=== PATIENT | female | born 1955 | race Caucasian/White ===

== ENCOUNTER 2017-04-15 10:35 | Observation (INO) ==
[2017-04-15] MEDS ORDERED: ASPIRIN 325 MG TABLET PO STA (11:22)
[2017-04-15] MEDS ORDERED: LORazepam 2 MG/1 ML VIAL IV STA (11:23)
[2017-04-15] MEDS ORDERED: ASPIRIN 325 MG TABLET ONE (11:26)
[2017-04-15] MEDS ORDERED: LORazepam 2 MG/1 ML VIAL ONE (11:27)
[2017-04-15 11:30] LABS: Basophils # 0.1 10*3/uL (0.0-0.2); Basophils % 0.9 % (0.0-0.8); Eosinophils # 0.2 10*3/uL (0.0-0.87); Eosinophils % 3.4 % (0.00-10.9); Hemoglobin 14.7 GM/DL (12.0-16.0); Immature Granulocytes % 0.4 %; Immature Granulocytes Absolute 0.02 #; Lymphocytes # 1.9 10*3/uL (1.4-4.0); Lymphocytes % 35.4 % (21.3-54.2); Mean Corpuscular HGB Conc 34.2 GM/DL (32-36); Mean Corpuscular Hemoglobin 30 PG (27-34); Mean Corpuscular Volume 87.8 FL (87-102); Mean Platelet Volume 10.8 FL (9.6-12.0); Monocytes # 0.4 10*3/uL (0.11-0.8); Monocytes % 7.1 % (1.7-12.7); Neutrophils # 2.8 10*3/uL (1.4-7.4); Neutrophils % 52.8 % (38.7-73.9); Platelet Count 199 T/CUMM (130-400); Red Cell Distribution Width 12.4 % (9.3-17.3); White Blood Count 5.4 T/CUMM (4-12)
[2017-04-15 11:44] LABS: Bilirubin,Total 0.5 MG/DL (0.2-1.0); Calcium 9.7 MG/DL (8.5-10.1); Osmolality,Calculated 278.3 MOS/KG (273-304); Potassium 4.2 MMOL/L (3.5-5.1)
[2017-04-15] MEDS ORDERED: ACETAMINOPHEN 325 MG TABLET PO PRN (13:21)
[2017-04-15] MEDS ORDERED: diphenhydrAMINE CAP 25 MG CAPSULE PO PRN (13:21)
[2017-04-15] MEDS ORDERED: guaiFENesin/DM ER 600-30 MG TABLET PO PRN (13:21)
[2017-04-15] MEDS ORDERED: PROMETHAZINE 25 MG/1 ML VIAL IM PRN (13:21)
[2017-04-15] MEDS ORDERED: DOCUSATE SODIUM 100 MG CAPSULE PO PRN (13:21)
[2017-04-15] MEDS ORDERED: LORazepam 1 MG TABLET PO PRN (13:21)
[2017-04-15] MEDS ORDERED: ONDANSETRON 4 MG/2 ML VIAL IV PRN (13:21)
[2017-04-15] MEDS ORDERED: ZALEPLON 5 MG CAPSULE PO PRN (13:21)
[2017-04-15] MEDS ORDERED: MORPHINE 2 MG/1 ML SYRINGE IV PRN (13:21)
[2017-04-15] MEDS ORDERED: SODIUM CHLORIDE 0.9% 1,000 ML IV SCH (13:30)
[2017-04-15 14:19] LABS: Risk Ratio 3.6; Thyroid Stimulating Hormone 3.52 uIU/ml (0.358-3.74); VLDL CHOLESTEROL 24.6 MG/DL
[2017-04-15] MEDS ORDERED: ALUMINUM/MAGNES/SIMETH MAX STR 30 ML UDCUP PO PRN (15:14)
[2017-04-15] MEDS: PANTOPRAZOLE 40 MG TABLET PO SCH (15:24)
[2017-04-15] MEDS: METOPROLOL TARTRATE 25 MG TABLET PO SCH ×2 (15:25→21:18)
[2017-04-15] MEDS: ENOXAPARIN 40 MG/0.4 ML SYRINGE SUBCUT SCH (15:25)
[2017-04-15 15:41] LABS: Apearance,Urine CLEAR (Clear); Bilirubin,Urine Negative (Negative); Blood, Urine Negative (Negative); Glucose,Urine (UA) Negative (Negative); Ketones,Urine Negative (Negative); Mucus,Urine Occasional /LPF (Occasional); Nitrite,Urine Negative (Negative); Protein,Urine Negative; Squamous Epithelial Cell,Urine Occasional /HPF (0-10); Urine Color Yellow (Yellow); Urine Specific Gravity 1.005 (1.001-1.035); Urine Urobilinogen < 2.0 EU/DL (0.2-1.0); WBC,Urine <1 /HPF (0-6)
[2017-04-15] MEDS: NITROGLYCERIN 0.1 MG/HR PATCH TRANSDERM SCH (17:05)
[2017-04-15] MEDS: SIMVASTATIN 10 MG TABLET PO SCH (21:18)
[2017-04-16 05:15] LABS: Basophils % 0.9 % (0.0-0.8); Eosinophils # 0.2 10*3/uL (0.0-0.87); Eosinophils % 4.9 % (0.00-10.9); Hematocrit 42.9 VOL% (35.7-47.0); Immature Granulocytes % 0.2 %; Immature Granulocytes Absolute 0.01 #; Lymphocytes # 1.8 10*3/uL (1.4-4.0); Lymphocytes % 38.5 % (21.3-54.2); Mean Corpuscular HGB Conc 32.6 GM/DL (32-36); Mean Corpuscular Hemoglobin 29 PG (27-34); Mean Corpuscular Volume 89.6 FL (87-102); Mean Platelet Volume 10.9 FL (9.6-12.0); Monocytes # 0.4 10*3/uL (0.11-0.8); Monocytes % 7.9 % (1.7-12.7); Neutrophils # 2.2 10*3/uL (1.4-7.4); Neutrophils % 47.6 % (38.7-73.9); Platelet Count 179 T/CUMM (130-400); Red Blood Count 4.79 MC/CUMM (3.8-5.5); Red Cell Distribution Width 12.4 % (9.3-17.3); White Blood Count 4.7 T/CUMM (4-12)
[2017-04-16 05:45] LABS: Calcium 8.8 MG/DL (8.5-10.1); Magnesium 2.3 MG/DL (1.8-2.4); Osmolality,Calculated 280.1 MOS/KG (273-304); Potassium 4.2 MMOL/L (3.5-5.1)
[2017-04-16 10:19] LABS: Troponin I Only < 0.015 NG/ML (0.00-0.045)
[2017-04-16] MEDS ORDERED: MAGNESIUM SULF RIDER 2 GM in PREMIX 1 EACH IV PRN (11:43)
[2017-04-16] MEDS ORDERED: POTASSIUM CHLORIDE RIDER 10 MEQ in PREMIX 1 EACH IV PRN (11:43)
[2017-04-16] MEDS ORDERED: diphenhydrAMINE CAP 25 MG CAPSULE PO ONE (11:43)
[2017-04-16] MEDS ORDERED: DIAZEPAM 5 MG TABLET PO ONE (11:43)
[2017-04-16] MEDS: PANTOPRAZOLE 40 MG TABLET PO SCH (11:53)
[2017-04-16] MEDS: SODIUM CHLORIDE 0.45% 1,000 ML IV SCH ×2 (11:53→18:00)
[2017-04-16] MEDS: METOPROLOL TARTRATE 25 MG TABLET PO SCH ×3 (11:53→20:48)
[2017-04-16] MEDS: ASPIRIN EC 81 MG TABLET PO SCH (11:53)
[2017-04-16] MEDS: NITROGLYCERIN 0.1 MG/HR PATCH TRANSDERM SCH (12:07)
[2017-04-16] MEDS ORDERED: LIDOCAINE 1% 20 ML VIAL ONE (12:11)
[2017-04-16] MEDS ORDERED: HEPARIN/NACL 0.9% 2 UNITS/ML 1,000 ML IV ONE (12:11)
[2017-04-16] MEDS ORDERED: MIDAZOLAM 2 MG/2 ML VIAL ONE ×2 (12:26→12:42)
[2017-04-16] MEDS ORDERED: fentaNYL 100 MCG/2 ML VIAL ONE (12:26)
[2017-04-16 12:31] LABS: PT Patient Result 10.2 SECS; Partial Thromboplastin Time 24.7 SECS (0-40)
[2017-04-16 12:56] LABS: Troponin I Only < 0.015 NG/ML (0.00-0.045)
[2017-04-16] MEDS: ENOXAPARIN 40 MG/0.4 ML SYRINGE SUBCUT SCH (15:40)
[2017-04-16] MEDS: SIMVASTATIN 10 MG TABLET PO SCH (20:48)
[2017-04-17] MEDS: SODIUM CHLORIDE 0.45% 1,000 ML IV SCH ×3 (03:03→18:33)
[2017-04-17 03:42] LABS: Basophils % 0.6 % (0.0-0.8); Eosinophils # 0.3 10*3/uL (0.0-0.87); Eosinophils % 4.4 % (0.00-10.9); Hematocrit 38.6 VOL% (35.7-47.0); Hemoglobin 12.6 GM/DL (12.0-16.0); Immature Granulocytes % 0.2 %; Immature Granulocytes Absolute 0.01 #; Lymphocytes # 1.8 10*3/uL (1.4-4.0); Lymphocytes % 28.2 % (21.3-54.2); Mean Corpuscular HGB Conc 32.6 GM/DL (32-36); Mean Corpuscular Hemoglobin 30 PG (27-34); Mean Platelet Volume 11.1 FL (9.6-12.0); Monocytes # 0.4 10*3/uL (0.11-0.8); Monocytes % 6.3 % (1.7-12.7); Neutrophils # 3.8 10*3/uL (1.4-7.4); Neutrophils % 60.3 % (38.7-73.9); Platelet Count 169 T/CUMM (130-400); Red Blood Count 4.24 MC/CUMM (3.8-5.5); Red Cell Distribution Width 12.4 % (9.3-17.3); White Blood Count 6.3 T/CUMM (4-12)
[2017-04-17 04:01] LABS: Calcium 8.1 MG/DL (8.5-10.1); Magnesium 2.1 MG/DL (1.8-2.4); Osmolality,Calculated 282.1 MOS/KG (273-304); Potassium 3.6 MMOL/L (3.5-5.1)
[2017-04-17] MEDS: PANTOPRAZOLE 40 MG TABLET PO SCH (08:48)
[2017-04-17] MEDS: METOPROLOL TARTRATE 25 MG TABLET PO SCH (08:49)
[2017-04-17] MEDS: ASPIRIN EC 81 MG TABLET PO SCH (08:49)
[2017-04-17] MEDS: NITROGLYCERIN 0.1 MG/HR PATCH TRANSDERM SCH (08:51)
[2017-04-17] MEDS: MECLIZINE 25 MG TABLET PO SCH ×3 (12:14→20:48)
[2017-04-17] MEDS: PARoxetine 20 MG TABLET PO SCH (12:15)
[2017-04-17] MEDS: ENOXAPARIN 40 MG/0.4 ML SYRINGE SUBCUT SCH (14:52)
[2017-04-17] MEDS: SIMVASTATIN 10 MG TABLET PO SCH (20:48)
[2017-04-17] MEDS: CARVEDILOL 6.25 MG TABLET PO SCH (21:14)
[2017-04-18 03:53] LABS: Basophils # 0.1 10*3/uL (0.0-0.2); Basophils % 0.8 % (0.0-0.8); Eosinophils # 0.3 10*3/uL (0.0-0.87); Eosinophils % 5.4 % (0.00-10.9); Hematocrit 39.2 VOL% (35.7-47.0); Hemoglobin 13.2 GM/DL (12.0-16.0); Immature Granulocytes % 0.3 %; Immature Granulocytes Absolute 0.02 #; Lymphocytes # 2.1 10*3/uL (1.4-4.0); Mean Corpuscular HGB Conc 33.7 GM/DL (32-36); Mean Corpuscular Hemoglobin 30 PG (27-34); Mean Corpuscular Volume 88.5 FL (87-102); Mean Platelet Volume 11.2 FL (9.6-12.0); Monocytes # 0.4 10*3/uL (0.11-0.8); Monocytes % 6.9 % (1.7-12.7); Neutrophils # 3.1 10*3/uL (1.4-7.4); Neutrophils % 51.6 % (38.7-73.9); Platelet Count 162 T/CUMM (130-400); Red Blood Count 4.43 MC/CUMM (3.8-5.5); White Blood Count 6.1 T/CUMM (4-12)
[2017-04-18 04:23] LABS: Calcium 8.6 MG/DL (8.5-10.1); Magnesium 1.9 MG/DL (1.8-2.4); Osmolality,Calculated 280.1 MOS/KG (273-304); Potassium 4.5 MMOL/L (3.5-5.1)
[2017-04-18] MEDS: ASPIRIN EC 81 MG TABLET PO SCH (08:55)
[2017-04-18] MEDS: PARoxetine 20 MG TABLET PO SCH (08:55)
[2017-04-18] MEDS: MECLIZINE 25 MG TABLET PO SCH ×2 (08:55→14:29)
[2017-04-18] MEDS: PANTOPRAZOLE 40 MG TABLET PO SCH (08:55)
[2017-04-18] MEDS: CARVEDILOL 6.25 MG TABLET PO SCH (08:56)
[2017-04-18] MEDS: NITROGLYCERIN 0.1 MG/HR PATCH TRANSDERM SCH (08:56)
[2017-04-18] MEDS ORDERED: CYANOCOBALAMIN 1000 MCG/1 ML VIAL SUBCUT SCH (09:00)
[2017-04-18] MEDS ORDERED: LISINOPRIL 5 MG TABLET PO SCH (09:00)
[2017-04-18] MEDS: SODIUM CHLORIDE 0.45% 1,000 ML IV SCH (10:47)
[2017-04-18] MEDS: ENOXAPARIN 40 MG/0.4 ML SYRINGE SUBCUT SCH (14:29)
[2017-04-18 16:15] VITALS: BP 112/71
== END 2017-04-18 17:23 | disposition home or self-care (01) ==
LOC: N.EDINP 10:35 → N.ED 10:35 → N.EDINP 14:44 → N.TELEN 14:47
PROVIDERS: ADMIT Internal Medicine; ATTEND Internal Medicine
PROC: CLCCHCL (ICD-10-PCS; 2017-04-16 12:45)